=== PATIENT | male | born 1960 | race American Indian/Alaskan Native ===

== ENCOUNTER 2017-04-23 21:36 | Emergency (ER) | payer MEDICAID ==
[2017-04-23] MEDS ORDERED: Naloxone 0.4 mg/ml Inj (Adult) IVP STA (22:19)
[2017-04-23 22:55] LABS: BASO # 0.1 K/uL (0.0-0.2); BASO % 0.7 % (0.0-2.0); EOS # 0.4 K/uL (0.0-0.7); EOS % 2.9 % (0.0-4.0); HEMATOCRIT 37.6 % (35.0-51.0); LYMPH # 1.6 K/uL (1.0-4.3); LYMPH % 12.6 % (20.0-40.0); MEAN CELL VOLUME 87.9 fl (80.0-94.0); MEAN CORPUSCULAR HEMOGLOBIN 28.3 pg (27.0-31.0); MEAN CORPUSCULAR HGB CONC 32.2 g/dL (33.0-37.0); MEAN PLATELET VOLUME 9.8 fl (7.2-11.7); MONO # 1.6 K/uL (0.0-0.8); MONO % 12.2 % (0.0-10.0); NEUT # 9.2 K/uL (1.8-7.0); NEUT % 71.6 % (50.0-75.0); RED CELL DISTRIBUTION WIDTH 14.1 % (11.5-14.5); WHITE BLOOD COUNT 12.9 K/uL (4.8-10.8)
[2017-04-23] MEDS ORDERED: Naloxone 0.4 mg/ml Inj (Adult) ONE (23:08)
--- NOTE | 2017-04-23 23:20 | ED PDOC ---
HPI: Psych/Substance Abuse Time Seen by Provider: 04/23/17 22:01 Chief Complaint (Nursing): Substance Abuse Chief Complaint (Provider): possible substance abuse History Per: EMS History/Exam Limitations: clinical condition Additional History Per: EMS Additional Complaint(s): 59 y/o male brought in by EMS for possible substance abuse. Patient picked up in the field noted to be nodding off and altered. Patient responsive to painful stimuli. HPI slightly limited due to patients current state. Significant other at bedside, states patient has history of heroin abuse. Past Medical History Reviewed: Historical Data, Nursing Documentation, Vital Signs Vital Signs: Last Vital Signs Temp 97 F L 04/23/17 21:38 Pulse 78 04/23/17 21:38 Resp 16 04/23/17 21:38 BP 145/94 H 04/23/17 21:38 Pulse Ox 99 04/23/17 21:38 - Medical History PMH: Diabetes - Surgical History Surgical History: No Surg Hx - Family History Family History: States: No Known Family Hx - Living Arrangements Living Arrangements: With Family - Social History Current smoker - smoking cessation education provided: Yes Alcohol: Occasional Drugs: Opiates - Allergies Allergies/Adverse Reactions: Allergies Allergy/AdvReac Type Severity Reaction Status Date / Time No Known Allergies Allergy Verified 04/23/17 21:38 Review of Systems ROS Statement: Except As Marked, All Systems Reviewed And Found Negative Physical Exam - Reviewed Nursing Documentation Reviewed: Yes Vital Signs Reviewed: Yes - Physical Exam Appears: Positive for: Well, Non-toxic, No Acute Distress (sleeping) Head Exam: Positive for: ATRAUMATIC, NORMAL INSPECTION, NORMOCEPHALIC Skin: Positive for: Normal Color Eye Exam: Positive for: EOMI. Negative for: PERRL (pinpoint bilateral) ENT: Positive for: Normal ENT Inspection Cardiovascular/Chest: Positive for: Regular Rate, Rhythm Respiratory: Positive for: Normal Breath Sounds Gastrointestinal/Abdominal: Positive for: Normal Exam Extremity: Positive for: Normal ROM Neurologic/Psych: Positive for: Alert (age appropriate) - Laboratory Results Result Diagrams: 04/23/17 22:22 04/23/17 23:00 - ECG ECG: Positive for: Viewed By Me (reviewed by ED attending) ECG Rhythm: Positive for: Sinus Rhythm, Nonspecific Changes O2 Sat by Pulse Oximetry: 99 - Radiology X-Ray: Viewed By Me X-Ray Interpretation: No Acute Disease - Progress ED Course And Treament: labs, accucheck, urine, ekg, chest xray Patient immediately woke up after IV narcan administered. States he did 2 bags of heroin tonight. Patient awake, alert, oriented x3. Ambulating steady gait. Tolerated PO. Stable for discharge. Disposition - Clinical Impression Clinical Impression: Heroin abuse - Patient ED Disposition Is Patient to be Admitted: No Counseled Patient/Family Regarding: Studies Performed, Diagnosis, Need For Followup - Disposition Referrals: [facility] [Outside] Disposition: Routine/Home Disposition Time: 00:06 Condition: IMPROVED Instructions: Narcotic Abuse (ED)
[2017-04-23 23:35] LABS: ALB/GLOB RATIO 1.2 (1.0-2.1); ALCOHOL SERUM < 10 mg/dl (0-10); ALKALINE PHOSPHATASE 90 U/L (38-126); ALT/SGPT 36 U/L (21-72); AST/SGOT 30 U/L (17-59); BILIRUBIN,TOTAL 0.3 mg/dl (0.2-1.3); BLOOD UREA NITROGEN 16 mg/dl (9-20); CARBON DIOXIDE 23 mmol/L (22-30); CHLORIDE 103 mmol/L (98-107); GFR AFRICAN-AMERICAN > 60; GLUCOSE,RANDOM 108 mg/dL (75-110); POTASSIUM 4.4 MMOL/L (3.6-5.0); SODIUM 140 mmol/l (132-148); TOTAL PROTEIN 7.9 G/DL (6.3-8.2)
[2017-04-24 00:16] VITALS: BP 153/88; PULSE 90; RESP 19; TEMP 98.6; O2SAT 98
--- NOTE | 2017-04-24 11:29 | RAD ---
HISTORY: Altered mental status COMPARISON: No prior. FINDINGS: LUNGS: There is mild patient rotation to the left. There are low lung volumes. PLEURA: No significant pleural effusion identified, no pneumothorax apparent. CARDIOVASCULAR: Normal. OSSEOUS STRUCTURES: No significant abnormalities. VISUALIZED UPPER ABDOMEN: Normal. OTHER FINDINGS: None. IMPRESSION: No acute findings.
--- NOTE | 2017-04-25 10:20 | CARD ---
APPROVED REPORT EKG Measurement Heart [id number] <Conclusion> Normal sinus rhythm Nonspecific T wave abnormality Abnormal ECG
== END 2017-04-24 00:24 | disposition home or self-care (01) ==
LOC: EDBD 21:36 → H.ER 21:36
DX: F11.10 Opioid abuse, uncomplicated (principal)
CPT/HCPCS: 71010; 80053; 80320; 82948; 85025; 93005; 96374; 99284; J2310

== ENCOUNTER 2017-10-19 04:59 | Emergency (ER) | payer SELFPAY ==
[2017-10-19] MEDS ORDERED: Albuterol-Ipratrop 3 mg / 0.5 (3 ml) UD INH STA (05:33)
[2017-10-19] MEDS ORDERED: Albuterol-Ipratrop 3 mg / 0.5 (3 ml) UD ONE (05:43)
--- NOTE | 2017-10-19 05:56 | ED PDOC ---
History of Present Illness History of Present Illness: James Prather is a 57 year old male with a past medical history of asthma, who is presenting to the ED for evaluation of productive cough with associated rhinorrhea and sore throat, onset 2 weeks ago. Patient also reports chest tightness similar to previous asthma attacks, and states that he ran out of his Albuterol. He admits to getting kicked out of his house by father this morning, but is unable to explain why. Patient denies any alcohol or drug use. Pt very lethargic but denies intoxication. PMD: none provided HPI: Influenza Time Seen by Provider: 10/19/17 05:18 Chief Complaint: Cough, Cold, Congestion Chief Complaint (Provider): cough, cold, congestion History Per: Patient Exam Limitations: no limitations Onset/Duration Of Symptoms: Days (x14) Symptoms include: sore throat, cough Past Medical History Reviewed: Historical Data, Nursing Documentation, Vital Signs Vital Signs: Last Vital Signs Temp 97.9 F 10/19/17 05:09 Pulse 92 H 10/19/17 05:09 Resp 18 10/19/17 05:09 BP 136/88 10/19/17 05:09 Pulse Ox 99 10/19/17 05:09 - Medical History PMH: Asthma, Diabetes - Surgical History Surgical History: No Surg Hx - Family History Family History: States: No Known Family Hx - Social History Current smoker - smoking cessation education provided: Yes Alcohol: None Drugs: Denies - Home Medications Home Medications: Ambulatory Orders Medication Instructions Recorded Oseltamivir [Tamiflu] 75 mg PO BID #10 cap 10/19/17 - Allergies Allergies/Adverse Reactions: Allergies Allergy/AdvReac Type Severity Reaction Status Date / Time No Known Allergies Allergy Verified 04/23/17 21:38 Review of Systems ROS Statement: Except As Marked, All Systems Reviewed And Found Negative ENT: Positive for: Nose Discharge, Throat Pain Respiratory: Positive for: Cough, Sputum Physical Exam - Reviewed Nursing Documentation Reviewed: Yes Vital Signs Reviewed: Yes - Physical Exam Appears: Positive for: No Acute Distress. Negative for: Well ((+) lethargic) Head Exam: Positive for: ATRAUMATIC, NORMOCEPHALIC Skin: Positive for: Warm, Dry Eye Exam: Positive for: EOMI, PERRL ENT: Positive for: Pharynx Is (erythematous), Nasal Congestion (copious amounts of clear nasal discharge). Negative for: Tonsillar Exudate, Tonsillar Swelling Neck: Positive for: Painless ROM, Supple Cardiovascular/Chest: Positive for: Regular Rate, Rhythm. Negative for: Murmur Respiratory: Positive for: Rhonchi (bilateral), Respiratory Distress (mild) Gastrointestinal/Abdominal: Positive for: Soft. Negative for: Tenderness Back: Positive for: Normal Inspection. Negative for: Decreased ROM Extremity: Positive for: Normal ROM. Negative for: Pedal Edema, Deformity Lymphatic: Negative for: Adenopathy Neurologic/Psych: Positive for: Oriented (x2), Gait (Slow unsteady gait), Other (slightly slurred speech). Negative for: Motor/Sensory Deficits Medical Decision Making Medical Decision Making: Time: 5:33 Impression: respiratory infection, possible intoxication Plan: --Alcohol Serum --Drug Screen --ED Urine Dipstick --CXR --Duoneb 9 ml INH --Peak Flow Pre/Post Tx --Influenza A B --Rapid Strep Previous visit demonstrates h/o opiate abuse, but pt denies this. No narcan given at this time since pt is maintaining airway, oxygenation, and respiratory drive. Will monitor. Flu b +. Tamiflu ordered. Scribe Attestation: Documented by Hyacinth Webster acting as a scribe for Elaine Hernandez MD. Scribe Attestation: All medical record entries made by the Scribe were at my direction and personally dictated by me. I have reviewed the chart and agree that the record accurately reflects my personal performance of the history, physical exam, medical decision making, and the department course for this patient. I have also personally directed, reviewed, and agree with the discharge instructions and disposition. - Laboratory Results Result Diagrams: 10/19/17 08:33 - ECG O2 Sat by Pulse Oximetry: 99 (RA) Pulse Ox Interpretation: Normal Disposition - Clinical Impression Clinical Impression: Substance abuse, Influenza - Disposition Referrals: [facility] [place] [Outside] Disposition Time: 07:00 Condition: STABLE Additional Instructions: Return to ER for any worse or new symptoms. Influenza is contagious for 7 days from onset of symptoms. Avoid alcohol and drugs. Prescriptions: Oseltamivir [Tamiflu] 75 mg PO BID #10 cap Instructions: Flu, Adult (DC), Drug Abuse and Drug Addiction (DC) Forms: [employer] (Pashto) Patient Signed Over To: Mark Kaufman III Handoff Comments: Pending reassessment and final ER disposition
[2017-10-19 07:06] LABS: OPIATES, UR NEGATIVE (NEGATIVE)
[2017-10-19 07:08] LABS: BARBITURATES, UR NEGATIVE (NEGATIVE); BENZODIAZEPINES, UR POSITIVE (NEGATIVE); PHENCYCLIDINE, UR NEGATIVE (NEGATIVE)
--- NOTE | 2017-10-19 07:18 | ED PDOC ---
- Laboratory Results Result Diagrams: 10/19/17 08:33 - ECG O2 Sat by Pulse Oximetry: 99 (RA) Pulse Ox Interpretation: Normal - Radiology X-Ray: Interpreted by Me X-Ray Interpretation: No Acute Disease Medical Decision Making Medical Decision Making: recd on endorsement 7am pending labs and re-eval 57yo male prior known substance abuse now arrives flu like symptoms, also somnolent SPO2 100% on supplemental O2 on rounds, HR in 80s labs reviewed +flu +cocaine and benzos monitored in ED 4+ hrs with return to baseline. Ambulated to BR without difficulty. Vitals were stable, somnolence resolved. No signs acute toxidrome or withdrawal sydrome on disposition/discharge from ED. Rx tamiflu and instructions for flu provided. Disposition Counseled Patient/Family Regarding: Studies Performed, Diagnosis, Need For Followup - Clinical Impression Clinical Impression: Substance abuse, Influenza - POA Present On Arrival: None - Disposition Referrals: [facility] [Outside] Disposition: Routine/Home Disposition Time: 12:01 Condition: STABLE Additional Instructions: Return to ER for any worse or new symptoms. Influenza is contagious for 7 days from onset of symptoms. Avoid alcohol and drugs. Prescriptions: Oseltamivir [Tamiflu] 75 mg PO BID #10 cap Instructions: Flu, Adult (DC), Drug Abuse and Drug Addiction (DC) Forms: [employer] (Yakut)
[2017-10-19 08:50] LABS: BLOOD UREA NITROGEN 13 mg/dl (9-20); CALCIUM 9.2 mg/dL (8.4-10.2); GFR AFRICAN-AMERICAN > 60; GFR NON-AFRICAN AMERICAN > 60
[2017-10-19 09:18] VITALS: BP 119/68; PULSE 84; RESP 16; TEMP 98.1
--- NOTE | 2017-10-19 10:54 | RAD ---
HISTORY: cough COMPARISON: Chest radiograph dated 04/23/2017 TECHNIQUE: Chest PA and lateral FINDINGS: LUNGS: No active pulmonary disease. PLEURA: No significant pleural effusion identified. No pneumothorax apparent. CARDIOVASCULAR: Atherosclerotic aortic calcifications. Cardiomediastinal silhouette within normal limits. OSSEOUS STRUCTURES: Unchanged. VISUALIZED UPPER ABDOMEN: Normal. OTHER FINDINGS: None. IMPRESSION: No active disease.
[2017-10-19 21:48] VITALS: O2SAT 99
== END 2017-10-19 12:36 | disposition home or self-care (01) ==
LOC: H.ER 04:59
DX: J11.1 Influenza due to unidentified influenza virus with other respiratory manifestations (principal); E11.9 Type 2 diabetes mellitus without complications; F17.200 Nicotine dependence, unspecified, uncomplicated; J45.909 Unspecified asthma, uncomplicated
CPT/HCPCS: 71046; 80048; 87070; 87430; 87804; 99283; G0480

== ENCOUNTER 2017-12-19 23:26 | Emergency (ER) | payer SELFPAY ==
[2017-12-19 23:46] VITALS: BMI 28.3
[2017-12-19 23:47] VITALS: BP 127/78; PULSE 83; RESP 18; TEMP 98.3; O2SAT 98
== END 2017-12-20 01:00 | disposition left against medical advice (07) ==
LOC: H.ER 23:26
DX: Z02.89 Encounter for other administrative examinations (principal)